=== PATIENT | female | born 1990 | race Caucasian/White ===

== ENCOUNTER 2018-09-09 21:39 | Emergency (ER) | payer OTHER ==
[~2018-09-09] VITALS: Ht 160 cm; Wt 97.1 kg
[2018-09-09 21:47] VITALS: BP 138/72
--- NOTE | 2018-09-09 21:49 | NUR ---
TO LOBBY, VSS.
--- NOTE | 2018-09-09 23:37 | NUR ---
PATIENT PRESENTS TO ED WITH LLQ ABD PAIN X 3 DAYS. DENIES N/V/D. PATIENT STATES PAIN OF 9/10 AT THIS TIME; VSS; PATIENT POSITIONED FOR COMFORT; HOB ELEVATED; BEDRAILS UP X2; BED DOWN. ER MD MADE AWARE OF PT STATUS.
--- NOTE | 2018-09-09 23:37 | NUR ---
PT TAKEN TO BED 8
--- NOTE | 2018-09-10 00:21 | NUR ---
Dr. Miles evaluating patient at bedside.
[2018-09-10 00:25] VITALS: BP 133/78
== END 2018-09-10 00:25 | disposition home or self-care (01) ==
LOC: MED 21:39
DX: R10.32 Left lower quadrant pain (principal)
CPT/HCPCS: 81002; 81025; 99282

== ENCOUNTER 2022-07-12 14:38 | Emergency (ER) | payer MEDICAID, OTHER ==
[~2022-07-12] VITALS: Ht 160 cm; Wt 83.9 kg
[2022-07-12 14:49] VITALS: BP 129/77
--- NOTE | 2022-07-12 15:55 | NUR ---
Macy gore in ED - 07/12/22 at 1629 by MEDR Patient discharged with v/s stable. Written and verbal after care instructions given and explained. Patient verbalized understanding. Ambulatory with steady gait. All questions addressed prior to discharge. Advised to follow up with PMD.
--- NOTE | 2022-07-12 15:56 | NUR ---
Patient discharged with v/s stable. Written and verbal after care instructions given and explained to parent/guardian. Parent/Guardian verbalized understanding. Ambulatorysteady gait. All questions addressed prior to discharge. Advised to follow up with PMD. Addendum: 07/12/22 at 1556 by [id number] WRONG PT
--- NOTE | 2022-07-12 16:03 | NUR ---
Macy gore in [facility] - 07/12/22 at 1606 by WOJCIECH CRUTCHES GIVEN AND PT RETURNED SAFE DEMONSTRATION
--- NOTE | 2022-07-12 16:06 | NUR ---
PT LEFT WITHOUT CRUTCHES.
== END 2022-07-12 15:56 | disposition home or self-care (01) ==
LOC: MED 14:38
DX: S90.32XA Contusion of left foot, initial encounter (principal); X58.XXXA Exposure to other specified factors, initial encounter; Y93.89 Activity, other specified; Y92.89 Other specified places as the place of occurrence of the external cause; Y99.8 Other external cause status
CPT/HCPCS: 73630; 99283